=== PATIENT | female | born 1970 | race Two or more races ===

== ENCOUNTER → 2024-09-06 | Outpatient (CLI) | payer MEDICAID, SELFPAY ==
--- NOTE | 2024-09-06 13:30 | XR_ITS ---
Examination: Breast ultrasound complete, bilateral Date and time of exam: September 06, 2024 1406 hours INDICATIONS: Mammogram 2023 30 mm focal asymmetry upper outer right breast Technique: Real-time grayscale ultrasonographic imaging bilateral breasts, including all 4 quadrants as well as nipple retroareolar and axillary regions. Findings: Sonographic images right breast 5:00 nodule lobular margins 10 x 7 mm 9:00 cyst 6 x 5 mm Sonographic images left breast 1:00 cyst 8 x 6 mm No solid nodules IMPRESSION: BI-RADS 3: Probably benign findings. Recommend 1 additional 6 month right breast sonogram follow-up to document stability of 5:00 nodule described above
--- NOTE | 2024-09-06 14:30 | XR_ITS ---
Examination: Diagnostic digital mammography, bilateral Computer aided detection 3-D breast Tomosynthesis, bilateral Date and time of exam: September 06, 2024 1433 hours INDICATIONS: Mammogram June 10, 2023 30 mm focal asymmetry upper outer right breast Technique: Nonmagnified MLO, CC views of the breasts to been obtained, reconstructed from 3-D Tomosynthesis images. R2 computer aided detection program utilized for evaluation of suspicious masses and/or abnormal calcifications. 3-D Tomosynthesis images obtained. Findings: The breasts are heterogeneously dense, which may obscure small masses Stable focal asymmetry outer and inner right breast Please see the right breast sonogram report today indicating right breast 5:00 nodule 10 mm Impression: BI-RADS Category 2: Benign findings Recommend yearly follow-up mammography Please see the right breast sonogram report today recommending 6 month right breast sonogram follow-up to document stability of 5:00 nodule right breast.
== END | disposition home or self-care (01) ==
LOC: CDIM 13:38
DX: R92.323 Mammographic fibroglandular density, bilateral breasts (principal); N63.14 Unspecified lump in the right breast, lower inner quadrant
CPT/HCPCS: 76641; 77062; 77066; G0279